=== PATIENT | male | born 1985 | race Caucasian/White ===

== ENCOUNTER 2022-05-20 22:29 | Emergency (ER) | payer SELFPAY ==
[~2022-05-20] VITALS: Ht 185.4 cm; Wt 95.5 kg
[~2022-05-20 22:29] MED LIST: ALBU6.7H9 INH
[2022-05-20 23:16] VITALS: BP 156/93
[2022-05-21] MEDS ORDERED: traZODone 50mg tablet PO STA (00:51)
[2022-05-21] MEDS ORDERED: CEPH-585 PO (01:00)
[2022-05-21] MEDS ORDERED: SULF1TAB45 PO (01:00)
[2022-05-21] MEDS ORDERED: sulfamethoxazole/trimethoprim DS (800/160mg) tablet PO ONE (01:00)
[2022-05-21] MEDS ORDERED: cephalexin 250mg capsule PO ONE (01:00)
[2022-05-21] MEDS ORDERED: ketorolac trometh inj. 60 MG/2 ML VIAL IM ONE (01:00)
== END 2022-05-21 01:22 | disposition home or self-care (01) ==
LOC: ER 22:30
DX: L03.115 Cellulitis of right lower limb (principal); Z88.8 Allergy status to other drugs, medicaments and biological substances; Z79.899 Other long term (current) drug therapy; Z79.2 Long term (current) use of antibiotics
CPT/HCPCS: 96372; 99283; J1885

== ENCOUNTER 2022-07-12 15:08 | Emergency (ER) | payer SELFPAY ==
[~2022-07-12] VITALS: Ht 185.4 cm; Wt 95.5 kg
[~2022-07-12 15:08] MED LIST changes: +ALBU6.7H14 INH; -ALBU6.7H9 INH; +CEPH-585 PO
[2022-07-12 15:58] VITALS: BP 159/95
[2022-07-12] MEDS ORDERED: cephalexin 250mg capsule PO ONE (18:20)
[2022-07-12] MEDS ORDERED: ondansetron 4mg rapidly disintigrating tab PO ONE (18:20)
[2022-07-12] MEDS ORDERED: CEPH250T PO (18:20)
[2022-07-12] MEDS ORDERED: bacitracin 15gm ointment TP ONE (18:20)
== END 2022-07-12 19:00 | disposition home or self-care (01) ==
LOC: ER 15:11
DX: L03.115 Cellulitis of right lower limb (principal); Z88.7 Allergy status to serum and vaccine
CPT/HCPCS: 99284

== ENCOUNTER 2022-11-15 16:13 | Emergency (ER) | payer MEDICAID | END 2022-11-15 16:19 | disposition left against medical advice (07) | LOC: ER 16:14 | DX: R06.02 Shortness of breath (principal); Z53.21 Procedure and treatment not carried out due to patient leaving prior to being seen by health care provider ==

== ENCOUNTER 2023-05-09 19:08 | Emergency (ER) | payer SELFPAY ==
[~2023-05-09] VITALS: Ht 185.4 cm; Wt 84.0 kg
[2023-05-09 19:19] VITALS: BP 128/95; PULSE 83; RESP 16; TEMP 98.5; O2SAT 100
[2023-05-10] MEDS ORDERED: CEPH250T PO (02:48)
== END 2023-05-10 03:04 | disposition home or self-care (01) ==
LOC: ER 19:09
DX: L02.415 Cutaneous abscess of right lower limb (principal); L02.511 Cutaneous abscess of right hand; Z79.899 Other long term (current) drug therapy
CPT/HCPCS: 99283

== ENCOUNTER 2024-06-23 20:12 | Emergency (ER) | payer OTHER ==
[~2024-06-23] VITALS: Ht 185.4 cm; Wt 87.5 kg
[~2024-06-23 20:12] MED LIST changes: -CEPH-585 PO
[2024-06-23 20:13] VITALS: BP 158/106; PULSE 131; O2SAT 99
[2024-06-23] MEDS: proparacaine 0.5% ophthalmic drops 15ml EACHEYE ONE (21:14)
[2024-06-24 03:44] LABS: BASOPHILS # (AUTO) 0.1 X10'3 (0-0.2); BASOPHILS % (AUTO) 1.3 % (0-1); EOSINOPHILS # (AUTO) 0.1 X10'3 (0-0.9); EOSINOPHILS % (AUTO) 1.6 % (0-6); HEMATOCRIT 40.8 % (42.0-52.0); HEMOGLOBIN 13.3 g/dl (14.0-17.9); LYMPHOCYTES # (AUTO) 2.6 X10'3 (1.1-4.8); LYMPHOCYTES % (AUTO) 47.2 % (21-51); MEAN CORPUSCULAR HEMOGLOBIN 31.3 PG (27.0-31.0); MEAN CORPUSCULAR HGB CONC 32.6 g/dL (33.0-36.5); MEAN CORPUSCULAR VOLUME 96.1 FL (78-98); MEAN PLATELET VOLUME 7.5 FL (7.4-10.4); MONOCYTES # (AUTO) 0.5 X10'3 (0-0.9); MONOCYTES % (AUTO) 8.4 % (2-12); NEUTROPHILS # (AUTO) 2.3 X10'3 (1.8-7.7); NEUTROPHILS % (AUTO) 41.5 % (42-75); PLATELET COUNT 275 X10'3 (140-440); RED BLOOD COUNT 4.24 X10'6 (4.70-6.10); RED CELL DISTRIBUTION WIDTH 18.2 % (11.5-14.5); WHITE BLOOD COUNT 5.5 X10'3 (4.5-11.0)
[2024-06-24 03:48] LABS: ALBUMIN 3.5 G/DL (3.4-5.0); ANION GAP 12 (8-16); BLOOD UREA NITROGEN 12 MG/DL (7-18); BUN/CREATININE RATIO 14.3 (10.0-20.0); CALCIUM 8.5 MG/DL (8.5-10.1); CHLORIDE 103 MMOL/L (99-107); CREATININE 0.84 MG/DL (0.60-1.10); GLUCOSE 85 MG/DL (70-104); POTASSIUM 3.4 MMOL/L (3.5-5.1); SODIUM 144 MMOL/L (135-145); eCRCL 133 ML/MIN; eGFR > 90 ML/MIN
[2024-06-24 08:08] VITALS: RESP 16
[2024-06-24 09:31] VITALS: TEMP 98
== END 2024-06-24 09:12 | disposition home or self-care (01) ==
LOC: ER 20:12
DX: H53.8 Other visual disturbances (principal); H33.22 Serous retinal detachment, left eye; F29 Unspecified psychosis not due to a substance or known physiological condition
CPT/HCPCS: 36415; 80048; 85025; 99283; 99284

== ENCOUNTER 2024-10-18 05:57 | Inpatient (IN) | payer MEDICAID ==
[~2024-10-18] VITALS: Ht 185.4 cm; Wt 89.2 kg
[2024-10-18 07:14] LABS: BASOPHILS % (AUTO) 0.9 % (0-1); EOSINOPHILS % (AUTO) 0.7 % (0-6); HEMATOCRIT 41.2 % (42.0-52.0); HEMOGLOBIN 13.8 g/dl (14.0-17.9); LYMPHOCYTES # (AUTO) 0.9 X10'3 (1.1-4.8); MEAN CORPUSCULAR HEMOGLOBIN 29.7 PG (27.0-31.0); MEAN CORPUSCULAR HGB CONC 33.5 g/dL (33.0-36.5); MEAN CORPUSCULAR VOLUME 88.7 FL (78-98); MEAN PLATELET VOLUME 7.6 FL (7.4-10.4); MONOCYTES # (AUTO) 0.4 X10'3 (0-0.9); MONOCYTES % (AUTO) 9.8 % (2-12); NEUTROPHILS # (AUTO) 2.6 X10'3 (1.8-7.7); NEUTROPHILS % (AUTO) 65.6 % (42-75); PLATELET COUNT 236 X10'3 (140-440); RED BLOOD COUNT 4.64 X10'6 (4.70-6.10); RED CELL DISTRIBUTION WIDTH 16.5 % (11.5-14.5); WHITE BLOOD COUNT 3.9 X10'3 (4.5-11.0)
[2024-10-18] MEDS ORDERED: iohexol 300mg/ml 100ml inj. ONE (07:26)
[2024-10-18 07:36] LABS: ALANINE AMINOTRANSFERASE 47 U/L (12-78); ALBUMIN 3.7 G/DL (3.4-5.0); ALBUMIN/GLOBULIN RATIO 0.9 (1.1-1.5); ALKALINE PHOSPHATASE 100 IU/L (46-116); ANION GAP 15 (8-16); ASPARTATE AMINO TRANSFERASE 56 U/L (10-37); BILIRUBIN,TOTAL 0.8 MG/DL (0.1-1.0); BLOOD UREA NITROGEN 8 MG/DL (7-18); BUN/CREATININE RATIO 9.3 (10.0-20.0); CALCIUM 8.5 MG/DL (8.5-10.1); CHLORIDE 98 MMOL/L (99-107); CREATININE 0.86 MG/DL (0.60-1.10); ETHANOL 96 MG/DL (<10); GLUCOSE 114 MG/DL (70-104); POTASSIUM 3.2 MMOL/L (3.5-5.1); SODIUM 140 MMOL/L (135-145); TOTAL CARBON DIOXIDE 27.1 MMOL/L (24-32); eCRCL 129 ML/MIN; eGFR > 90 ML/MIN
[2024-10-18] MEDS: normal saline 1000ml 1,000 ML IV ONE ×3 (07:45→10:55)
[2024-10-18] MEDS: ondansetron/PF 4mg/2ml inj IV ONE (07:55)
[2024-10-18] MEDS: OLANZapine **IM** 10 mg inj. IM ONE (08:22)
[2024-10-18] MEDS: pantoprazole 40 MG vial IV ONE (08:22)
[2024-10-18 08:23] LABS: INR 1.2 INR; PROTHROMBIN TIME 12.4 SECONDS (9.0-12.0)
[2024-10-18] MEDS ORDERED: NO HOME MEDS (08:25)
[2024-10-18 09:00] LABS: LIPASE 62 U/L (16-77)
[2024-10-18] MEDS: metroNIDAZOLE-Flagyl 500mg/NS 100 ML IV STA (10:55)
[2024-10-18] MEDS: CefTRIAXone 2gm/D5W 50ml BAG 50 ML IV ONE (11:58)
[2024-10-18] MEDS: haloperidol lactate 5mg/ml inj IM ONE (12:59)
[2024-10-18] MEDS ORDERED: acetaminophen 325mg tablet PO PRN ×2 (13:05)
[2024-10-18] MEDS ORDERED: magnesium hydroxide 30ml (MOM) UD suspension PO PRN (13:05)
[2024-10-18] MEDS ORDERED: morphine 2 MG/ML inj. syringe IV PRN (13:05)
[2024-10-18] MEDS ORDERED: ondansetron/PF 4mg/2ml inj IV PRN (13:05)
[2024-10-18] MEDS ORDERED: mag hydrox/Alum hydrox/simeth 30ml oral suspension PO PRN (13:05)
[2024-10-18] MEDS ORDERED: potassium Cl 40MEQ/1/2NS 520ml 520 ML IV PRN (13:05)
[2024-10-18] MEDS ORDERED: potassium Cl 20 mEq SR tablet PO PRN (13:05)
[2024-10-18] MEDS ORDERED: haloperidol 5mg tablet PO PRN (13:10)
[2024-10-18] MEDS ORDERED: LORazepam 2 mg/ml vial IV PRN ×2 (13:10→17:15)
[2024-10-18] MEDS ORDERED: haloperidol lactate 5mg/ml inj IM PRN ×2 (13:10→17:15)
[2024-10-18] MEDS: haloperidol lactate 5mg/ml inj IVH ONE (13:15)
[2024-10-18] MEDS: normal saline 1000ml 1,000 ML IV SCH (13:27)
[2024-10-18] MEDS ORDERED: octreotide inj. 500 MCG in normal saline 100ml IV soln 97.5 ML IV SCH (13:35)
[2024-10-18 13:39] LABS: MAGNESIUM 1.8 MG/DL (1.5-2.4)
[2024-10-18] MEDS ORDERED: thiamine 100mg/ml 2ml inj. IM SCH (14:00)
[2024-10-18 14:51] LABS: BILIRUBIN,URINE NEGATIVE (Neg); CLARITY,URINE CLEAR (Clear); COLOR,URINE YELLOW (Yellow); GLUCOSE, URINE NEGATIVE (Neg); KETONES,URINE NEGATIVE (Neg); LEUKOCYTE ESTERASE ,URINE NEGATIVE (Neg); NITRITES, URINE NEGATIVE (Neg); OCCULT BLOOD,URINE NEGATIVE (Neg); PH,URINE 7.5 (4.8-8.0); PROTEIN,URINE NEGATIVE (Neg); UROBILINOGEN,URINE 0.2 E.U/dL (0.2-1.0)
[2024-10-18 14:52] LABS: UA COLLECTION TYPE URINAL
[2024-10-18] MEDS: LORazepam 2 mg/ml vial IV ONE (14:54)
[2024-10-18] MEDS: folic acid 1mg/0.2ml inj IV SCH (14:54)
[2024-10-18] MEDS: LidoCAINE 2% Topical Jelly 11mL syringe (UROJET) TOP ONE (14:55)
[2024-10-18] MEDS: pantoprazole 40MG/NS 100ML BAG 100 ML IV SCH (15:16)
[2024-10-18] MEDS ORDERED: hydrALAZINE 20mg/ml inj. IV PRN (17:30)
[2024-10-18] MEDS ORDERED: metoprolol tartrate 1mg/ml inj IV PRN (17:30)
[2024-10-18] MEDS: metoprolol tartrate 1mg/ml inj IV STA (17:56)
[2024-10-18] MEDS ORDERED: metroNIDAZOLE-Flagyl 500mg/NS 100 ML IV SCH (19:00)
[2024-10-18 20:00] VITALS: BP 172/104; PULSE 93; RESP 20; TEMP 96.2; O2SAT 97
[2024-10-18] MEDS: docusate sod 100mg capsule PO SCH (20:00)
[2024-10-18] MEDS: K and/or MAG REPLACEMENT MC SCH (20:00)
[2024-10-18] MEDS: thiamine 100mg/ml 2ml inj. IV SCH (21:44)
[2024-10-18 21:51] VITALS: BP 139/91; PULSE 69; RESP 16; TEMP 98.6; O2SAT 96
[2024-10-18] MEDS: potassium Cl 20 mEq SR tablet PO PRN (23:06)
[2024-10-18 23:41] LABS: OCCULT BLOOD STOOL NEGATIVE (Neg)
[2024-10-19] VITALS (12 sets, daily range): BP systolic 112–158; BP diastolic 67–109; PULSE 61–88; RESP 10–20; TEMP 97.8–99.6; O2SAT 96–99
[2024-10-19 06:11] LABS: EOSINOPHILS # (AUTO) 0.1 X10'3 (0-0.9); EOSINOPHILS % (AUTO) 2.3 % (0-6); HEMATOCRIT 34.9 % (42.0-52.0); HEMOGLOBIN 11.7 g/dl (14.0-17.9); LYMPHOCYTES # (AUTO) 1.5 X10'3 (1.1-4.8); LYMPHOCYTES % (AUTO) 36.2 % (21-51); MEAN CORPUSCULAR HEMOGLOBIN 30.3 PG (27.0-31.0); MEAN CORPUSCULAR HGB CONC 33.6 g/dL (33.0-36.5); MONOCYTES # (AUTO) 0.4 X10'3 (0-0.9); MONOCYTES % (AUTO) 8.7 % (2-12); NEUTROPHILS # (AUTO) 2.2 X10'3 (1.8-7.7); NEUTROPHILS % (AUTO) 51.8 % (42-75); PLATELET COUNT 187 X10'3 (140-440); RED BLOOD COUNT 3.88 X10'6 (4.70-6.10); RED CELL DISTRIBUTION WIDTH 16.1 % (11.5-14.5); WHITE BLOOD COUNT 4.3 X10'3 (4.5-11.0)
[2024-10-19 06:36] LABS: ALANINE AMINOTRANSFERASE 37 U/L (12-78); ALBUMIN 3.1 G/DL (3.4-5.0); ALBUMIN/GLOBULIN RATIO 0.9 (1.1-1.5); ALKALINE PHOSPHATASE 89 IU/L (46-116); ANION GAP 8 (8-16); ASPARTATE AMINO TRANSFERASE 46 U/L (10-37); BILIRUBIN,TOTAL 2.1 MG/DL (0.1-1.0); BLOOD UREA NITROGEN 4 MG/DL (7-18); BUN/CREATININE RATIO 4.4 (10.0-20.0); CALCIUM 7.9 MG/DL (8.5-10.1); CHLORIDE 103 MMOL/L (99-107); GLUCOSE 95 MG/DL (70-104); MAGNESIUM 1.4 MG/DL (1.5-2.4); POTASSIUM 3.2 MMOL/L (3.5-5.1); SODIUM 138 MMOL/L (135-145); TOTAL CARBON DIOXIDE 27.2 MMOL/L (24-32); TOTAL PROTEIN 6.6 G/DL (6.4-8.2); eCRCL 123 ML/MIN; eGFR > 90 ML/MIN
[2024-10-19] MEDS: thiamine 100mg/ml 2ml inj. IV SCH (07:50)
[2024-10-19] MEDS: magnesium sulf-water 2g/50mL 50 ML IV PRN (07:51)
[2024-10-19] MEDS: metoprolol tartrate 50mg tablet PO SCH (07:53)
[2024-10-19] MEDS ORDERED: CefTRIAXone 2gm/D5W 50ml BAG 50 ML IV SCH (08:00)
[2024-10-19] MEDS: multivitamins, therapeutics tablet PO SCH (08:00)
[2024-10-19] MEDS: LORazepam 2 mg/ml vial IV PRN (08:12)
[2024-10-19] MEDS: morphine 2 MG/ML inj. syringe IV PRN (09:31)
[2024-10-19] MEDS: magnesium sulf-water 4G/100mL 100 ML IV PRN (10:47)
[2024-10-19 10:52] LABS: C DIFF ANTIGEN NEGATIVE (NEGATIVE); C DIFF SPECIMEN=DIARRHEA? ACCEPTABLE; C DIFFICILE TOXINS A&B NEGATIVE (Neg)
[2024-10-19] MEDS ORDERED: midazolam 1 mg/ML 2ml injection ONE (15:46)
[2024-10-19] MEDS ORDERED: propofol inj 20 ML IV ONE (15:47)
[2024-10-20 06:00] VITALS: BP 143/98; PULSE 76; RESP 19; TEMP 98; O2SAT 96
[2024-10-20 06:41] LABS: EOSINOPHILS # (AUTO) 0.2 X10'3 (0-0.9); EOSINOPHILS % (AUTO) 3.9 % (0-6); HEMATOCRIT 35.6 % (42.0-52.0); LYMPHOCYTES # (AUTO) 1.8 X10'3 (1.1-4.8); MEAN CORPUSCULAR HEMOGLOBIN 30.8 PG (27.0-31.0); MEAN CORPUSCULAR HGB CONC 33.7 g/dL (33.0-36.5); MEAN CORPUSCULAR VOLUME 91.2 FL (78-98); MEAN PLATELET VOLUME 8.8 FL (7.4-10.4); MONOCYTES # (AUTO) 0.4 X10'3 (0-0.9); MONOCYTES % (AUTO) 9.3 % (2-12); NEUTROPHILS # (AUTO) 2.3 X10'3 (1.8-7.7); NEUTROPHILS % (AUTO) 47.8 % (42-75); PLATELET COUNT 186 X10'3 (140-440); RED CELL DISTRIBUTION WIDTH 16.2 % (11.5-14.5); WHITE BLOOD COUNT 4.7 X10'3 (4.5-11.0)
[2024-10-20 07:15] LABS: ALANINE AMINOTRANSFERASE 28 U/L (12-78); ALBUMIN/GLOBULIN RATIO 0.9 (1.1-1.5); ALKALINE PHOSPHATASE 81 IU/L (46-116); ANION GAP 8 (8-16); ASPARTATE AMINO TRANSFERASE 29 U/L (10-37); BILIRUBIN,TOTAL 1.4 MG/DL (0.1-1.0); BLOOD UREA NITROGEN 3 MG/DL (7-18); BUN/CREATININE RATIO 4.5 (10.0-20.0); CALCIUM 8.1 MG/DL (8.5-10.1); CHLORIDE 103 MMOL/L (99-107); CREATININE 0.66 MG/DL (0.60-1.10); GLUCOSE 87 MG/DL (70-104); MAGNESIUM 2.2 MG/DL (1.5-2.4); POTASSIUM 3.7 MMOL/L (3.5-5.1); SODIUM 134 MMOL/L (135-145); TOTAL PROTEIN 6.4 G/DL (6.4-8.2); eCRCL 168 ML/MIN; eGFR > 90 ML/MIN
[2024-10-20 11:00] VITALS: BP 137/97; PULSE 76; RESP 16; TEMP 97.7; O2SAT 97
[2024-10-20] MEDS ORDERED: LORazepam 2 mg/ml vial IV PRN (13:10)
[2024-10-20] MEDS ORDERED: LORazepam 1 MG tablet PO PRN (13:10)
[2024-10-20 18:00] VITALS: BP 154/94; PULSE 71; RESP 16; TEMP 98.3; O2SAT 98
[2024-10-20 22:00] VITALS: BP 140/95; PULSE 65; RESP 18; TEMP 97.5; O2SAT 98
[2024-10-21 04:56] LABS: BASOPHILS % (AUTO) 0.7 % (0-1); EOSINOPHILS # (AUTO) 0.2 X10'3 (0-0.9); EOSINOPHILS % (AUTO) 3.5 % (0-6); HEMATOCRIT 36.4 % (42.0-52.0); HEMOGLOBIN 11.9 g/dl (14.0-17.9); LYMPHOCYTES # (AUTO) 1.6 X10'3 (1.1-4.8); LYMPHOCYTES % (AUTO) 29.9 % (21-51); MEAN CORPUSCULAR HEMOGLOBIN 29.8 PG (27.0-31.0); MEAN CORPUSCULAR HGB CONC 32.7 g/dL (33.0-36.5); MEAN CORPUSCULAR VOLUME 91.2 FL (78-98); MEAN PLATELET VOLUME 7.8 FL (7.4-10.4); MONOCYTES # (AUTO) 0.5 X10'3 (0-0.9); MONOCYTES % (AUTO) 8.4 % (2-12); NEUTROPHILS # (AUTO) 3.2 X10'3 (1.8-7.7); NEUTROPHILS % (AUTO) 57.5 % (42-75); PLATELET COUNT 184 X10'3 (140-440); RED CELL DISTRIBUTION WIDTH 16.4 % (11.5-14.5); WHITE BLOOD COUNT 5.5 X10'3 (4.5-11.0)
[2024-10-21 05:17] LABS: ALANINE AMINOTRANSFERASE 28 U/L (12-78); ALBUMIN 3.2 G/DL (3.4-5.0); ALBUMIN/GLOBULIN RATIO 0.9 (1.1-1.5); ALKALINE PHOSPHATASE 81 IU/L (46-116); ANION GAP 4 (8-16); ASPARTATE AMINO TRANSFERASE 24 U/L (10-37); BILIRUBIN,TOTAL 0.5 MG/DL (0.1-1.0); BLOOD UREA NITROGEN 4 MG/DL (7-18); BUN/CREATININE RATIO 6.2 (10.0-20.0); CALCIUM 8.8 MG/DL (8.5-10.1); CHLORIDE 101 MMOL/L (99-107); CREATININE 0.65 MG/DL (0.60-1.10); GLUCOSE 96 MG/DL (70-104); MAGNESIUM 1.8 MG/DL (1.5-2.4); POTASSIUM 3.8 MMOL/L (3.5-5.1); SODIUM 135 MMOL/L (135-145); TOTAL CARBON DIOXIDE 30.3 MMOL/L (24-32); TOTAL PROTEIN 6.8 G/DL (6.4-8.2); eCRCL 171 ML/MIN; eGFR > 90 ML/MIN
[2024-10-21 06:00] VITALS: BP 148/86; PULSE 61; RESP 16; TEMP 97.9; O2SAT 96
[2024-10-22] MEDS ORDERED: thiamine 100mg tablet PO SCH (08:00)
== END 2024-10-21 09:15 | disposition left against medical advice (07) | DRG 720 ==
LOC: ER 05:57 → ED HOLD 13:10 → ORTHO 4S 19:35
PROVIDERS: ADMIT Nurse Practitioner Family; ATTEND Nurse Practitioner Family
PROC: 0DB78ZX Excision of Stomach, Pylorus, Via Natural or Artificial Opening Endoscopic, Diagnostic (ICD-10-PCS; 2024-10-19)
PROC: 0DB68ZX Excision of Stomach, Via Natural or Artificial Opening Endoscopic, Diagnostic (ICD-10-PCS; principal; 2024-10-19 15:41)
DX: A41.9 Sepsis, unspecified organism (principal); E87.20 Acidosis, unspecified; I85.00 Esophageal varices without bleeding; K21.01 Gastro-esophageal reflux disease with esophagitis, with bleeding; K29.01 Acute gastritis with bleeding; D50.0 Iron deficiency anemia secondary to blood loss (chronic); K52.9 Noninfective gastroenteritis and colitis, unspecified; F10.239 Alcohol dependence with withdrawal, unspecified; Z53.21 Procedure and treatment not carried out due to patient leaving prior to being seen by health care provider; E87.6 Hypokalemia; Z59.00 Homelessness unspecified; Z88.7 Allergy status to serum and vaccine
CPT/HCPCS: 36415; 43239; 74177; 80053; 80320; 81003; 82272; 83605; 83690; 83735; 84145; 85025; 85610; 86885; 86900; 86901; 87045; 87046; 87081; 87324; 87449; 93005; 99291; A4620; G0378; J0696; J1630; J2060; J2250; J2270; J2405; J2470; J2704; J3411; J3475; J3490; J7030; Q9967

== ENCOUNTER 2025-04-02 15:18 | Emergency (ER) | payer MEDICAID ==
[~2025-04-02] VITALS: Ht 185.4 cm; Wt 74.0 kg
[~2025-04-02 15:18] MED LIST changes: +NO HOME MEDS
[2025-04-02 15:27] VITALS: BP 130/92; PULSE 98; RESP 16; TEMP 98.2; O2SAT 97
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
--- NOTE | 2025-04-02 15:53 | RADIOLOGY REPORT ---
DI CLAVICLE, right HISTORY: Shoulder Pain TECHNICAL DATA: AP and AP cephalic views were obtained of the right clavicle. COMPARISON: None FINDINGS: There is no fracture or focal abnormality of the right clavicle. The acromioclavicular joint appear s preserved. . IMPRESSION: 1. Normal two views of the right clavicle.
== END 2025-04-02 17:12 | disposition home or self-care (01) ==
LOC: ER 15:19
DX: M25.511 Pain in right shoulder (principal); Z72.89 Other problems related to lifestyle; Z79.899 Other long term (current) drug therapy; Z88.7 Allergy status to serum and vaccine
CPT/HCPCS: 73000; 99283